=== PATIENT | male | born 2000 | race Caucasian/White ===

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

== ENCOUNTER 2018-06-29 09:24 | Emergency (ER) | payer OTHER ==
[~2018-06-29] VITALS: Ht 167.6 cm; Wt 132.7 kg
[~2018-06-29 09:24] MED LIST changes: +IBUP-1542 PO; +OSEL75CA23 PO
[2018-06-29 09:33] VITALS: BP 131/61; PULSE 91; RESP 20; Ht 167.6 cm; Wt 132.7 kg
[2018-06-29] MEDS ORDERED: GUAI-637 PO (11:11)
[2018-06-29] MEDS ORDERED: ACET500C5 PO (11:11)
--- NOTE | 2018-06-29 11:20 | ERD ---
ER Documentation Chief Complaint Chief Complaint Complains of a cough and sorethroat x 3 days HPI 18-year-old male with no reported past medical surgical history presents with 3- day complaint of dry cough and sore throat. Patient also with complaint of generalized weakness and headache. He is most concerned about his cough. Cough is been nonproductive. He otherwise denies fevers, chills, nausea, vomiting, diarrhea, abdominal pain, urinary symptoms. Reports that he had a younger brother who was sick with URI type symptoms recently. Time examination patient is nontoxic-appearing with normal triage vital signs. ROS All systems reviewed and are negative except as per history of present illness. Medications Home Meds Active Scripts Acetaminophen* (Tylophen*) 500 Mg Capsule, 1 CAP PO Q6H PRN for PAIN AND OR ELEVATED TEMP, #20 CAP Prov:LINO YEN-C 06/29/18 Guaifenesin* (Robitussin*) 100 Mg/5 Ml Syrup, 200 MG PO Q4H PRN for COUGH for 7 Days, ML Prov:LINO YEN-Jennifer 06/29/18 Ibuprofen* (Motrin*) 600 Mg Tab, 600 MG PO Q6H PRN for PAIN AND OR ELEVATED TEMP, #30 TAB Prov:KELLIE QIU MD 03/12/16 Oseltamivir Phosphate* (Tamiflu*) 75 Mg Capsule, 75 MG PO BID for 5 Days, CAP Prov:KELLIE QIU MD 03/12/16 Acetaminophen* (Acetaminophen*) 650 Mg Tablet, 650 MG PO Q6H PRN for PAIN AND OR ELEVATED TEMP, #16 TAB Prov:ROBIN CAMPOS MD 03/09/15 Allergies Allergies: Coded Allergies: No Known Allergy (Unverified , 03/09/15) PMhx/Soc Medical and Surgical Hx: pt denies Medical Hx, pt denies Surgical Hx Hx Alcohol Use: No Hx Substance Use: No Hx Tobacco Use: No FmHx Family History: No diabetes, No coronary disease, No other Physical Exam Vitals Vital Signs Date Temp Pulse Resp B/P (MAP) Pulse Ox O2 O2 Flow FiO2 Time Delivery Rate 06/29/18 98.7 91 20 131/61 96 09:33 (84) Physical Exam I have reviewed the triage vital signs. Const: Morbidly obese, well developed, appears stated age Eyes: PERRL, no conjunctival injection HENT: NCAT, Neck supple without meningismus, sterile pharynx with mild erythema no swelling or exudates CV: RRR, Warm, well-perfused extremities RESP: CTAB, Unlabored respiratory effort GI: soft, non-tender, non-distended, no masses MSK: No gross deformities appreciated Skin: Warm, dry. No rashes Neuro: grossly non focal Psych: Appropriate mood and affect. Procedures/MDM 18-year-old male presents with complaint of sore throat and dry cough. Patient is nontoxic-appearing without any red flag symptoms, afebrile with reassuring exam. He likely has a component of viral URI and/or mild bronchitis not requiring antibiotics. No history of immunocompromise. Nontoxic appearance. Patient euvolemic with no trismus and no airway compromise. Able to tolerate PO. 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 Centor negative for strep. Plan to DC home with prompt outpatient PCP follow up; return precautions discussed DISPOSITION PLAN: We discussed follow up with the patient's primary care doctor within 24 to 48 hours. Patient counseled regarding my diagnostic impression and care plan. Prior to discharge all questions answered. Pt agrees with treatment plan and understands strict return precautions. Precautionary instructions provided including instructions to return to the ER if not improving or for any worsening or changing symptoms or concerns. Disclaimer: Inadvertent spelling and grammatical errors are likely due to EHR/dictation software use and do not reflect on the overall quality of patient care. Also, please note that the electronic time recorded on this note does not necessarily reflect the actual time of the patient encounter. Departure Diagnosis: Primary Impression: Sore throat Additional Impression: Cough Condition: Stable Patient Instructions: Self-Care for Sore Throats, Bronchitis, No Antibiotic (Adult), Cough, Chronic, Uncertain Cause, (Adult) Referrals: COMMUNITY CLINICS YOU HAVE RECEIVED A MEDICAL SCREENING EXAM AND THE RESULTS INDICATE THAT YOU DO NOT HAVE A CONDITION THAT REQUIRES URGENT TREATMENT IN THE EMERGENCY DEPARTMENT. FURTHER EVALUATION AND TREATMENT OF YOUR CONDITION CAN WAIT UNTIL YOU ARE SEEN IN YOUR DOCTORS OFFICE WITHIN THE NEXT 1-2 DAYS. IT IS YOUR RESPONSIBILITY TO MAKE AN APPOINTMENT FOR FOLOW-UP CARE. IF YOU HAVE A PRIMARY DOCTOR --you should call your primary doctor and schedule an appointment IF YOU DO NOT HAVE A PRIMARY DOCTOR YOU CAN CALL OUR PHYSICIAN REFERRAL HOTLINE AT IF YOU CAN NOT AFFORD TO SEE A PHYSICIAN YOU CAN CHOSE FROM THE FOLLOWING [facility] [address] [facility] [address] [facility] [facility] [address] [facility] [address] [facility]. [facility] [address] [facility]. [facility]. [address] Additional Instructions: Call your primary care doctor TOMORROW for an appointment during the next 2-3 days.See the doctor sooner or return here if your condition worsens before your appointment time. LINO YEN PA-C June 29, 2018 11:19
== END 2018-06-29 11:25 | disposition home or self-care (01) ==
LOC: FTE 09:24
DX: J02.9 Acute pharyngitis, unspecified (principal)
CPT/HCPCS: 99282